=== PATIENT | male | born 1960 | race Caucasian/White ===

== ENCOUNTER 2020-04-05 15:57 | Emergency (ER) | payer OTHER ==
[~2020-04-05] VITALS: Ht 172.7 cm; Wt 91.2 kg
[2020-04-05 16:02] VITALS: Ht 172.7 cm; Wt 91.2 kg
[2020-04-05 17:47] VITALS: BP 154/80
== END 2020-04-05 17:47 | disposition home or self-care (01) ==
LOC: ED 15:57
DX: S89.92XA Unspecified injury of left lower leg, initial encounter (principal); S19.9XXA Unspecified injury of neck, initial encounter; S69.92XA Unspecified injury of left wrist, hand and finger(s), initial encounter; I10 Essential (primary) hypertension; V09.9XXA Pedestrian injured in unspecified transport accident, initial encounter; Y93.89 Activity, other specified; Y92.89 Other specified places as the place of occurrence of the external cause; Y99.8 Other external cause status

== ENCOUNTER 2020-04-13 13:06 | Emergency (ER) | payer OTHER, SELFPAY ==
[~2020-04-13] VITALS: Ht 172.7 cm; Wt 91.6 kg
[2020-04-13 13:09] VITALS: Ht 172.7 cm; Wt 91.6 kg
[2020-04-13 14:27] VITALS: BP 140/89
== END 2020-04-13 14:27 | disposition home or self-care (01) ==
LOC: ED 13:06
DX: J02.8 Acute pharyngitis due to other specified organisms (principal); Z20.828 Contact with and (suspected) exposure to other viral communicable diseases
CPT/HCPCS: U0003

== ENCOUNTER 2020-04-25 17:31 | Emergency (ER) | payer OTHER ==
[~2020-04-25] VITALS: Ht 172.7 cm; Wt 91.6 kg
[2020-04-25 17:59] VITALS: Ht 172.7 cm; Wt 91.6 kg
[2020-04-25 19:24] VITALS: BP 175/90
== END 2020-04-25 19:24 | disposition home or self-care (01) ==
LOC: ED 17:31
DX: R51.9 Headache, unspecified (principal); I10 Essential (primary) hypertension; Z20.828 Contact with and (suspected) exposure to other viral communicable diseases; Z95.0 Presence of cardiac pacemaker